=== PATIENT | female | born 2005 | race African-American/Black ===

== ENCOUNTER 2025-02-06 14:02 | Emergency (ER) | payer BC ==
[~2025-02-06] VITALS: Ht 152.4 cm; Wt 75.0 kg
[2025-02-06 14:15] VITALS: O2SAT 98
[2025-02-06 15:21] LABS: ADD RBC MORPHOLOGY YES; BASOPHILS % 0.7 % (0.0-2.0); DIFFERENTIAL COMMENT 1; EOSINOPHILS % 0.9 % (0.0-5.0); HEMATOCRIT. 35.5 % (36.0-48.0); HEMOGLOBIN. 11.3 g/dL (12.0-16.0); LYMPHOCYTES % 34.5 % (20.0-50.0); MEAN CORPUSCULAR HEMOGLOBIN 22.2 pg (28.0-32.0); MEAN CORPUSCULAR HGB CONC 31.9 g/dL (31.0-37.0); MEAN CORPUSCULAR VOLUME 69.5 fL (81.0-99.0); MONOCYTES % 6.2 % (2.0-8.0); NEUTROPHILS % 57.7 % (40.0-76.0); PLATELET 282 x1000/uL (130-400); RED CELL DISTRIBUTION WIDTH 14.9 % (11.6-14.6); WHITE BLOOD COUNT 7.2 x1000/uL (4.5-11.0)
[2025-02-06 15:30] LABS: HCG SCREEN NEGATIVE
[2025-02-06 15:36] LABS: CLARITY URINE CLEAR (CLEAR); COLOR URINE YELLOW (YELLOW); GLUCOSE URINE NEGATIVE (NEGATIVE); KETONES URINE NEGATIVE (NEGATIVE); LEUKOCYTE ESTERASE URINE NEGATIVE (NEGATIVE); NITRITE URINE NEGATIVE (NEGATIVE); OCCULT BLOOD URINE NEGATIVE (NEGATIVE); PH URINE 5.5 (4.5-8.0); PROTEIN URINE NEGATIVE (NEGATIVE); SPECIFIC GRAVITY URINE 1.026 (1.005-1.030); UROBILINOGEN URINE 0.2 E.U./dL (0.2-1.0)
[2025-02-06 15:40] LABS: PLATELET ESTIMATE NORMAL
[2025-02-06 15:42] LABS: HYPOCHROMASIA 1+; MICROCYTOSIS 3+; OVALOCYTES 1+
[2025-02-06 15:46] LABS: CHLORIDE 105 mEq/L (98-107); POTASSIUM 3.4 mEq/L (3.5-5.1); SODIUM 138 mEq/L (136-145)
[2025-02-06 15:47] LABS: CALCIUM 9.7 mg/dL (8.7-10.4); CARBON DIOXIDE 24 mEq/L (21-32)
[2025-02-06 15:52] LABS: CREATININE 0.5 mg/dL (0.6-1.0); GLUCOSE 127 mg/dL (70-105); UREA NITROGEN BLOOD 13 mg/dL (9-23)
[2025-02-06 15:54] LABS: ALANINE AMINOTRANSFERASE 27 IU/L (10-49); ALBUMIN 4.3 g/dL (3.2-4.8); ASPARTATE AMINOTRANSFERASE 22 IU/L (<34); BILIRUBIN DIRECT 0.2 mg/dL (<=3.0); BILIRUBIN TOTAL 0.7 mg/dL (0.1-1.0); PROTEIN TOTAL 7.1 g/dL (6.0-8.3)
[2025-02-06] MEDS: IBUPROFEN 600MG TABLET PO SCH (16:22)
[2025-02-06] MEDS ORDERED: IBUP-2030 MT (17:36)
[2025-02-06] MEDS: HYDROCODONE/ACETAMINOPHEN 5/325MG TABLET PO ONE (17:53)
[2025-02-06 17:55] VITALS: BP 115/68; PULSE 77; RESP 18; TEMP 36.7; O2SAT 98
== END 2025-02-06 18:10 | disposition home or self-care (01) ==
LOC: ER 14:02
DX: E28.2 Polycystic ovarian syndrome (principal)
CPT/HCPCS: 36415; 76856; 80048; 80076; 81003; 84703; 85025; 99284